=== PATIENT | male | born 1965 | race Caucasian/White ===

== ENCOUNTER 2018-04-19 08:25 | Emergency (ER) | payer SELFPAY ==
[~2018-04-19] VITALS: Ht 170.2 cm; Wt 68.2 kg
[~2018-04-19 08:25] MED LIST: FERROUS SU325 MG/TAB PO; IBU400 MG PO; NO HOME MEDICATIONS; PRILOTC PO
[2018-04-19 08:30] VITALS: TEMP 98.1
[2018-04-19] MEDS ORDERED: NORCO 325 MG-51 TAB PO (10:11)
[2018-04-19] MEDS ORDERED: CRUTCHES MC (10:12)
[2018-04-19 10:32] LABS: SYNOVIAL FL. MONONUCLEAR 7.1 % (0-75); SYNOVIAL FLUID RBC 34000 /mm3 (0-0)
[2018-04-19 10:57] LABS: SYNOVIAL FLUID COLOR AMBER
[2018-04-19 10:58] LABS: SYNOVIAL FLUID APPEARANCE CLOUDY
[2018-04-19 11:45] VITALS: BP 175/114; PULSE 85
[2018-04-19 11:49] LABS: BASO # 0.1 (0.0-0.2); BASO % 0.9 % (0.0-2.0); EOS # 0.1 (0.0-0.7); EOS % 0.6 % (0-4.0); GRAN # 7.2 (1.4-6.5); GRAN % 76.9 % (42.2-75.2); HEMATOCRIT 45.1 % (42.0-52.0); HEMOGLOBIN 15.2 g/dl (13.5-18.0); LYMPH # 1.2 (1.2-3.4); LYMPH % 12.6 % (20.0-51.0); MEAN CELL VOLUME 94 fl (80.0-100.0); MEAN CORPUSCULAR HEMOGLOBIN 32 pg (27.0-31.0); MEAN CORPUSCULAR HGB CONC 34 g/dl (33.0-37.0); MEAN PLATELET VOLUME 8.8 fl (7.4-10.4); MONO # 0.8 (0.1-0.6); MONO % 8.6 % (1.7-9.3); PLATELET COUNT 268 K/mm3 (130-400); REDCELL DISTRIBUTION WIDTH-CV 12.4 % (11.5-14.5)
[2018-04-19 12:01] LABS: ALBUMIN 4.3 gm/dL (3.5-5.0); BILIRUBIN,TOTAL 0.5 mg/dL (0.0-1.0); C-REACTIVE PROTEIN 3.9 mg/dL (0.0-0.9); CALCIUM 8.9 mg/dL (8.4-10.2); CREATININE, serum 0.59 mg/dL (0.66-1.25); POTASSIUM 4.2 mmol/L (3.4-5.0); TOTAL PROTEIN 8.1 gm/dL (6.4-8.2)
[2018-04-19 12:07] LABS: SYNOVIAL FLUID WBC 25492 /mm3 (200-600)
[2018-04-19 12:23] LABS: ERYTHROCYTE SEDIMENTATION RATE 16 mm/hr (0-15)
== END 2018-04-19 12:01 | disposition home or self-care (01) ==
LOC: COL.ER 08:25
PROVIDERS: Emergency Medicine
DX: M25.461 Effusion, right knee (principal); I10 Essential (primary) hypertension; K27.9 Peptic ulcer, site unspecified, unspecified as acute or chronic, without hemorrhage or perforation; W01.0XXA Fall on same level from slipping, tripping and stumbling without subsequent striking against object, initial encounter; Y92.009 Unspecified place in unspecified non-institutional (private) residence as the place of occurrence of the external cause
CPT/HCPCS: J1885; L1846

== ENCOUNTER 2018-07-14 13:25 | Emergency (ER) | payer SELFPAY ==
[~2018-07-14] VITALS: Ht 170.2 cm; Wt 68.2 kg
[~2018-07-14 13:25] MED LIST changes: +CRUTCHES MC; +NORCO 325 MG-51 TAB PO
[2018-07-14 13:36] VITALS: TEMP 97.6
[2018-07-14] MEDS ORDERED: TYLENOL 500MG500 MG PO (14:39)
[2018-07-14 14:45] LABS: BASO # 0.1 (0.0-0.2); BASO % 0.8 % (0.0-2.0); EOS # 0.1 (0.0-0.7); EOS % 0.9 % (0-4.0); GRAN # 6.6 (1.4-6.5); GRAN % 82.7 % (42.2-75.2); HEMATOCRIT 41.5 % (42.0-52.0); HEMOGLOBIN 13.3 g/dl (13.5-18.0); LYMPH # 0.8 (1.2-3.4); LYMPH % 10.3 % (20.0-51.0); MEAN CELL VOLUME 94 fl (80.0-100.0); MEAN CORPUSCULAR HEMOGLOBIN 30 pg (27.0-31.0); MEAN CORPUSCULAR HGB CONC 32 g/dl (33.0-37.0); MEAN PLATELET VOLUME 8.7 fl (7.4-10.4); MONO # 0.4 (0.1-0.6); PLATELET COUNT 246 K/mm3 (130-400); RED BLOOD COUNT 4.41 M/mm3 (4.20-5.60); REDCELL DISTRIBUTION WIDTH-CV 12.5 % (11.5-14.5)
[2018-07-14 14:57] LABS: ALBUMIN 4.4 gm/dL (3.5-5.0); BILIRUBIN,TOTAL 0.4 mg/dL (0.0-1.0); CALCIUM 8.7 mg/dL (8.4-10.2); CREATININE, serum 0.55 mg/dL (0.66-1.25); POTASSIUM 3.9 mmol/L (3.4-5.0); TOTAL PROTEIN 7.9 gm/dL (6.4-8.2)
[2018-07-14] MEDS ORDERED: CEPHALEXIN500 M1 PO (16:08)
[2018-07-14] MEDS ORDERED: PERCOCET 325 MG1 TA2 PO (16:10)
[2018-07-14 16:40] VITALS: BP 149/92; PULSE 90
== END 2018-07-14 16:43 | disposition home or self-care (01) ==
LOC: COL.ER 13:25
PROVIDERS: Nurse Practitioner
DX: S82.041A Displaced comminuted fracture of right patella, initial encounter for closed fracture (principal); S00.81XA Abrasion of other part of head, initial encounter; Z23 Encounter for immunization; W13.8XXA Fall from, out of or through other building or structure, initial encounter; Y92.89 Other specified places as the place of occurrence of the external cause
CPT/HCPCS: J3010; L1846

== ENCOUNTER 2018-11-29 14:00 | Outpatient (RCR) | payer OTHER ==
[~2018-11-29 14:00] MED LIST changes: +CEPHALEXIN500 M1 PO; +PERCOCET 325 MG1 TA2 PO; +TYLENOL 500MG500 MG PO
== END 2018-12-21 10:11 | disposition home or self-care (01) ==
LOC: MKS.ESL.PT 14:00
DX: S82.001D Unspecified fracture of right patella, subsequent encounter for closed fracture with routine healing (principal)

== ENCOUNTER 2020-06-21 15:38 | Emergency (ER) | payer SELFPAY ==
[~2020-06-21] VITALS: Ht 170.2 cm; Wt 70.5 kg
[2020-06-21 15:59] VITALS: BP 105/72; PULSE 96; TEMP 98.3
[2020-06-22] MEDS ORDERED: FERROUS SU325 MG/TAB PO (10:15)
[2020-06-22] MEDS ORDERED: TYLENOL 500MG500 MG PO (10:15)
== END 2020-06-21 17:23 | disposition left against medical advice (07) ==
LOC: COL.ER 15:38
DX: R42 Dizziness and giddiness (principal); Z53.29 Procedure and treatment not carried out because of patient's decision for other reasons

== ENCOUNTER 2020-06-22 09:54 | Emergency (ER) | payer SELFPAY ==
[~2020-06-22] VITALS: Ht 170.2 cm; Wt 70.5 kg
[2020-06-22] MEDS ORDERED: FERROUS SU325 MG/TAB PO (10:15)
[2020-06-22] MEDS ORDERED: TYLENOL 500MG500 MG PO (10:15)
[2020-06-22 10:36] LABS: BASO # 0.1 (0.0-0.2); BASO % 0.5 % (0.0-2.0); EOS # 0.1 (0.0-0.7); EOS % 0.5 % (0-4.0); GRAN # 7.8 (1.4-6.5); GRAN % 77.7 % (42.2-75.2); LYMPH # 1.1 (1.2-3.4); LYMPH % 10.4 % (20.0-51.0); MEAN CELL VOLUME 89 fl (80.0-100.0); MEAN CORPUSCULAR HGB CONC 28 g/dl (33.0-37.0); MEAN PLATELET VOLUME 8.8 fl (7.4-10.4); MONO % 10.2 % (1.7-9.3); PLATELET COUNT 389 K/mm3 (130-400); RED BLOOD COUNT 1.63 M/mm3 (4.20-5.60); REDCELL DISTRIBUTION WIDTH-CV 17.2 % (11.5-14.5)
[2020-06-22 10:44] LABS: ALANINE AMINOTRANSFERASE 18 U/L (4-49); ALBUMIN 3.8 gm/dL (3.5-5.0); ALKALINE PHOSPHATASE 48 U/L (50-136); ANION GAP 11 mmol/L (7-16); AST,SGOT 38 U/L (15-37); BILIRUBIN,TOTAL 0.3 mg/dL (0.0-1.0); BLOOD UREA NITROGEN 9 mg/dL (9-20); CALCIUM 8.6 mg/dL (8.4-10.2); CARBON DIOXIDE 21 mmol/L (22-30); CHLORIDE 102 mmol/L (98-107); CREATININE, serum 0.79 (0.66-1.25); GLUCOSE 111 mg/dL (74-106); LIPASE 78 U/L (23-300); POTASSIUM 3.6 mmol/L (3.4-5.0); SODIUM 134 mmol/L (137-145); TOTAL PROTEIN 6.6 gm/dL (6.4-8.2)
[2020-06-22 10:48] LABS: ALCOHOL(ethanol),MEDICAL < 10 mg/dL
[2020-06-22 11:03] LABS: MEAN CORPUSCULAR HEMOGLOBIN 25 pg (27.0-31.0)
[2020-06-22 11:04] LABS: HEMATOCRIT 14.5 % (42.0-52.0); HEMOGLOBIN 4.1 g/dl (13.5-18.0)
[2020-06-22 12:15] VITALS: BP 134/75; PULSE 93; TEMP 97.8
[2020-06-22 12:27] VITALS: BP 139/71; PULSE 92; TEMP 97.9
[2020-06-22 12:32] VITALS: BP 134/87; PULSE 97; TEMP 98.1
[2020-06-22 12:37] VITALS: BP 145/77; PULSE 93; TEMP 98.2
[2020-06-22 13:31] LABS: PARTIAL THROMBOPLASTIN TIME 27.1 SECONDS (26.0-37.0)
== END 2020-06-22 12:47 | disposition short-term general hospital (02) ==
LOC: COL.ER 09:54
PROVIDERS: Physician Assistant
DX: K92.2 Gastrointestinal hemorrhage, unspecified (principal); D64.9 Anemia, unspecified
CPT/HCPCS: C9113; J7030; P9016

== ENCOUNTER 2021-07-07 14:15 | Emergency (ER) | payer SELFPAY ==
[~2021-07-07] VITALS: Ht 170.2 cm; Wt 67.3 kg
[2021-07-07 14:25] VITALS: BP 172/114; TEMP 97.6
[2021-07-07 15:22] VITALS: PULSE 104
== END 2021-07-07 15:24 | disposition home or self-care (01) ==
LOC: COL.ER 14:15
DX: M17.12 Unilateral primary osteoarthritis, left knee (principal)

== ENCOUNTER 2021-10-04 12:08 | Emergency (ER) | payer SELFPAY ==
[~2021-10-04] VITALS: Ht 170.2 cm; Wt 70.5 kg
[2021-10-04 12:38] VITALS: TEMP 98.1
[2021-10-04 14:53] VITALS: BP 149/99; PULSE 95
== END 2021-10-04 14:53 | disposition home or self-care (01) ==
LOC: COL.ER 12:08
DX: S82.022A Displaced longitudinal fracture of left patella, initial encounter for closed fracture (principal); W10.8XXA Fall (on) (from) other stairs and steps, initial encounter